=== PATIENT | male | born 1960 | race Caucasian/White ===

== ENCOUNTER 2021-04-27 17:22 | Emergency (ER) | payer OTHER ==
[~2021-04-27] VITALS: Ht 198.1 cm; Wt 104.3 kg
[2021-04-27] MEDS ORDERED: APAP W/CODEINE1 TA2 PO (18:07)
[2021-04-27] MEDS ORDERED: PREDNISONE 20 M20 MG PO (18:07)
[2021-04-27] MEDS ORDERED: ONDANSETRON HCL4 M2 PO (18:07)
[2021-04-27] MEDS ORDERED: PROAIR HFA8.5 GM INH (18:07)
[2021-04-27 18:14] VITALS: BP 161/84
== END 2021-04-27 18:16 | disposition home or self-care (01) ==
LOC: M.ERS 17:22
DX: U07.1 COVID-19 (principal); Z88.1 Allergy status to other antibiotic agents